=== PATIENT | male | born 1955 | race Caucasian/White ===

== ENCOUNTER → 2018-09-12 09:13 | Outpatient (POV) | payer OTHER, SELFPAY | PROVIDERS: Visit Provider Dermatology | DX: Z00.00 Encounter for general adult medical examination without abnormal findings (principal) ==

== ENCOUNTER → 2018-09-26 16:03 | Outpatient (POV) | payer OTHER, SELFPAY | PROVIDERS: Visit Provider Dermatology | DX: Z00.00 Encounter for general adult medical examination without abnormal findings (principal) ==

== ENCOUNTER → 2019-03-27 08:10 | Outpatient (POV) | payer OTHER, SELFPAY | PROVIDERS: Visit Provider Dermatology | DX: Z00.00 Encounter for general adult medical examination without abnormal findings (principal) ==

== ENCOUNTER → 2021-03-27 15:50 | Outpatient (CLI) | payer MEDICARE, SELFPAY ==
--- NOTE | 2021-03-27 15:59 | XR_ITS ---
FINAL REPORT CLINICAL HISTORY: NEUROGENIC CLAUDICATION, LOWER BACK PAIN, UNSPECIFIED FINDINGS: 5 views of the lumbar spine were obtained. There is no evidence of fracture or dislocation. The vertebral alignment is normal. There are [id number] degenerative changes with osteophytes. There is mild rightward curvature. No paraspinous soft tissue abnormalities identified. There is mild vascular calcification. IMPRESSION: [id number]-ep-[id number] degenerative change. Reviewed, Interpreted and Dictated by Kashif Nesbitt III, MD Transcribed by Harley Tomas Authenticated by Kashif Nesbitt III, MD on 03/27/2021 04:43:09 PM [facility]
== END ==
PROVIDERS: PCP Family Medicine; Visit Provider Family Medicine
DX: M54.50 Low back pain, unspecified (principal); G95.19 Other vascular myelopathies
CPT/HCPCS: 72110

== ENCOUNTER → 2021-04-09 07:57 | Outpatient (CLI) | payer MEDICARE, SELFPAY ==
--- NOTE | 2021-04-09 07:59 | MR_ITS ---
FINAL REPORT CLINICAL HISTORY: LUMBAR STENOSIS. lbp x3wks. bilateral leg weakness. no injury or trauma. neuropathy of bilateral feet. prior x-ray 03-27-21 FINDINGS: Multiplanar MR imaging of the lumbar spine was performed without contrast. On the sagittal T2-weighted images, there is abnormal decreased signal throughout the lumbar discs. The vertebrae are of normal height. The vertebral alignment is normal. L1-2: There is no significant canal stenosis or neural foraminal narrowing. L2-3: There is no significant canal stenosis or neural foraminal narrowing. L3-4: Mild diffuse disc bulge is present with mild bilateral neural foraminal narrowing. L4-5: Mild diffuse disc bulge is present with mild bilateral neural foraminal narrowing. L5-S1: There is no significant canal stenosis or neural foraminal narrowing. IMPRESSION: Diffuse disc bulges at L3-4 and L4-5 with mild bilateral neural foraminal narrowing. Reviewed, Interpreted and Dictated by Hansel Middleton MD Transcribed by Kathy Mancia Authenticated by Hansel Middleton MD on 04/09/2021 12:53:39 PM [facility]
== END ==
PROVIDERS: PCP Family Medicine; Visit Provider Family Medicine
DX: M48.062 Spinal stenosis, lumbar region with neurogenic claudication (principal); M51.36 Other intervertebral disc degeneration, lumbar region
CPT/HCPCS: 72148; 76376

== ENCOUNTER → 2021-09-29 13:05 | Outpatient (POV) | payer MEDICARE, SELFPAY | PROVIDERS: Visit Provider Dermatology | DX: Z00.00 Encounter for general adult medical examination without abnormal findings (principal) ==

== ENCOUNTER → 2022-06-15 14:50 | Outpatient (POV) | payer MEDICARE, SELFPAY | PROVIDERS: Visit Provider Dermatology | DX: Z00.00 Encounter for general adult medical examination without abnormal findings (principal) ==

== ENCOUNTER 2023-06-21 15:43 | Outpatient (POV) | payer MEDICARE, SELFPAY | END 2023-06-21 23:59 | disposition home or self-care (01) | LOC: SC 15:43 | PROVIDERS: PCP Family Medicine; Visit Provider Dermatology | DX: Z00.00 Encounter for general adult medical examination without abnormal findings (principal) ==

== ENCOUNTER 2024-06-27 15:21 | Outpatient (CLI) | payer MEDICARE, SELFPAY ==
[2024-07-02 13:35] LABS: Lyme B. burgdorferi PCR Blood Negative (Negative)
== END 2024-06-27 23:59 | disposition home or self-care (01) ==
LOC: LAB.DROPOF 06-29 13:09
PROVIDERS: PCP Nurse Practitioner; Visit Provider Nurse Practitioner
DX: R21 Rash and other nonspecific skin eruption (principal)
CPT/HCPCS: 87476